=== PATIENT | female | born 1985 | race Caucasian/White ===

== ENCOUNTER 2017-05-03 19:50 | Emergency (ER) | payer OTHER ==
[~2017-05-03 19:50] MED LIST: MULTI-VITAMIN1 TAB; OYSTER CALCIUM500 MG; PROTONIX; YASMIN 28 TABLE1 TAB; [UNRECOGNIZED DRUG - OTHER]
[2017-05-03] MEDS ORDERED: NAPROXEN PO (20:04)
[2017-05-03] MEDS ORDERED: PREVACID PO (20:04)
[2017-05-03] MEDS ORDERED: WELLBUTRIN PO (20:04)
== END 2017-05-03 21:20 | disposition home or self-care (01) ==
LOC: SED 19:50
DX: S30.0XXA Contusion of lower back and pelvis, initial encounter (principal); F41.9 Anxiety disorder, unspecified; K21.9 Gastro-esophageal reflux disease without esophagitis; F17.200 Nicotine dependence, unspecified, uncomplicated; W10.9XXA Fall (on) (from) unspecified stairs and steps, initial encounter; Y92.9 Unspecified place or not applicable
CPT/HCPCS: 99283